=== PATIENT | female | born 1985 | race Caucasian/White ===

== ENCOUNTER 2018-09-10 17:57 | Emergency (ER) | payer SELFPAY ==
[2018-09-10 18:11] VITALS: BP 94/65
--- NOTE | 2018-09-10 19:40 | UC ---
Abdominal Pain Female HPI - HPI Summary HPI Summary: 33 year old female, traveling, originally from [place] presents with h/o BRBPR x 3 months. States 7 years ago was dx'd with hemmorhoids, no treatment, went away on own. 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 She started a colic cleansing diet, stopped today, with vegan raw vegetables and colonic enemas. Tonight had diarrhea with BRB afterwards, [facility], sent here for evaluation. Denies lightheadedness, no abdominal pain, + bloating/ gas sensations. NO insurance. - History of Current Complaint Chief Complaint: UCGI Stated Complaint: BLOOD IN STOOL Time Seen by Provider: 09/10/18 18:35 Hx Obtained From: Patient, Family/University Archivist - friend Hx Last Menstrual Period: 08/29/18 ?: No Onset/Duration: Sudden Onset, Lasting Weeks, Still Present, Worse Since - today Severity Currently: None Pain Intensity: 0 Pain Scale Used: 0-10 Numeric Radiates: No Character: Other - bloating, flatus Allergies/Adverse Reactions: Allergies Allergy/AdvReac Type Severity Reaction Status Date / Time No Known Allergies Allergy Verified 09/10/18 18:11 Home Medications: Home Medications NK [No Home Medications Reported] 09/10/18 [History Confirmed 09/10/18] PMH/Surg Hx/FS Hx/Imm Hx Previously Healthy: Yes - Surgical History Surgical History: None - Family History Known Family History: Positive: Non-Contributory - Social History Alcohol Use: None Substance Use Type: None Smoking Status (MU): Never Smoked Tobacco Review of Systems All Other Systems Reviewed And Are Negative: Yes Constitutional: Positive: Chills - after BM, none since Eyes: Positive: Negative Gastrointestinal: Positive: Diarrhea, Other - BRB Neurological: Positive: Negative Psychological: Positive: Negative Is Patient Immunocompromised?: No Physical Exam Triage Information Reviewed: Yes Appearance: Well-Appearing, No Pain Distress, Well-Nourished, Thin Vital Signs: Initial Vital Signs Temp 98 F 09/10/18 18:04 Pulse 68 09/10/18 18:04 Resp 12 09/10/18 18:04 BP 94/65 09/10/18 18:04 Pulse Ox 100 09/10/18 18:04 Vital Signs Reviewed: Yes Eyes: Positive: Conjunctiva Clear Abdomen Description: Positive: Nontender, No Organomegaly, Soft. Negative: Distended, Guarding, Hepatomegaly, Splenomegaly Bowel Sounds: Positive: Present Pelvic Exam: Positive: Other - rectal exam- small throbosed external hemmorhoid noted, mild tender. Tenderness through internal retum with BRB noted on finger after examination. + hemmoird palpated on internal exam Musculoskeletal Exam: Normal Neurological Exam: Normal Psychological Exam: Normal Skin Exam: Normal Abd Pain Female Course/Dx - Course Course Of Treatment: Discussed case with Dr. Yanes, patient educated to call in AM for appointment. creative project manager info givne due to no insurance. Bryan diet. Go to ER with worsening symptoms. - Differential Dx/Diagnosis Differential Diagnosis: Bowel Obstruction, Constipation, Hepatitis Provider Diagnosis: Rectal bleeding Discharge - Sign-Out/Discharge Documenting (check all that apply): Patient Departure All imaging exams completed and their final reports reviewed: No Studies - Discharge Plan Condition: Good Disposition: HOME Patient Education Materials: Rectal Bleeding (ED), Diet for Stomach Ulcers and Gastritis (ED) Referrals: Danial Yanes MD [Medical Doctor] - No Primary Care Phys,NOPCP [Primary Care Provider] - Everardo Aguilar MD [Medical Doctor] - Additional Instructions: - Call hospital in AM- [phone], ask chief substation operator to be connected to Registered Massage Therapist. She can help with insurance, payment plans for future medical problems. - Call [facility] or Dr. Yanes's office to set up evaluation for possible colonoscopy for further evaluation - Go to ER with increased symptoms, lightheadedness, weakness, increased bleeding, fatigue - Bryan diet that is easy to digest- cooked vegetables, boiled chicken, no spices, bananas, cooked rice. etc. - Billing Disposition and Condition Condition: GOOD Disposition: Home
== END 2018-09-10 19:50 | disposition home or self-care (01) ==
LOC: UCEAST 17:57
DX: K62.5 Hemorrhage of anus and rectum (principal)
CPT/HCPCS: 99201; G0463